=== PATIENT | female | born 2000 | race Two or more races ===

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

== ENCOUNTER 2023-12-08 02:30 | Emergency (ER) | payer MEDICAID ==
[~2023-12-08] VITALS: Ht 154.9 cm; Wt 59.1 kg
[2023-12-08 03:25] LABS: Basophils # (auto) 0.1 10 ^3/uL (0-0.2); Basophils % (auto) 0.6 % (0.0-2.0); Eosinophils # (auto) 0.1 10 ^3/uL (0-0.8); Eosinophils % (auto) 0.6 % (0.0-7.0); Hematocrit 42.8 % (36.0-46.0); Hemoglobin 14.7 g/dL (12.2-16.2); Lymphocytes # (auto) 3.1 10 ^3/uL (0.4-5.4); Lymphocytes % (auto) 22.4 % (10.0-50.0); Mean Corpuscular Hemoglobin 29.4 pg (28.0-32.0); Mean Corpuscular Hgb Conc. 34.3 g/dL (32.0-36.0); Mean Corpuscular Volume 85.6 fL (80.0-100.0); Monocytes # (auto) 0.8 10 ^3/uL (0-1.3); Monocytes % (auto) 5.7 % (0.0-12.0); Neutrophils # (auto) 9.9 10 ^3/uL (1.6-8.6); Neutrophils % (auto) 70.7 % (37.0-80.0); Platelet Count (auto) 249 10^3/uL (140-450); Red Blood Cells 4.99 10^6/uL (4.0-5.20)
[2023-12-08 03:31] VITALS: TEMP 99
[2023-12-08 03:35] VITALS: PULSE 95; RESP 18; O2SAT 97
[2023-12-08] MEDS: MORPHINE SULFATE 4 MG/ML SYR/VIAL IV ONE (04:54)
[2023-12-08] MEDS: ONDANSETRON HCL 4 MG/2 ML VIAL IV ONE (04:55)
[2023-12-08 04:57] LABS: Chloride 110 mmol/L (98-107); Potassium 3.8 mmol/L (3.5-5.1); Sodium 139 mmol/L (136-145)
[2023-12-08 04:58] LABS: Anion Gap 9 (5-15); Calcium 9.8 mg/dL (8.7-10.4); Carbon Dioxide 20 mmol/L (20-31)
[2023-12-08 05:03] LABS: BUN/Creatinine Ratio 10.8 (10.0-20.0); Blood Urea Nitrogen 9 mg/dL (9-23); Glucose 110 mg/dL (74-106)
[2023-12-08 06:00] VITALS: BP 115/71; PULSE 86; RESP 16; O2SAT 98
[2023-12-08] MEDS: KETOROLAC TROMETH 30 MG/ML 1ML VIAL IV ONE (06:55)
[2023-12-08] MEDS ORDERED: GABA300T4 PO (07:02)
[2023-12-08] MEDS ORDERED: METH-1181 PO (07:02)
[2023-12-08] MEDS ORDERED: IBUP-1455 PO (07:02)
== END 2023-12-08 07:22 | disposition home or self-care (01) ==
LOC: ER 02:30 → EDBD 02:30 → EDUNIT# 02:30 → ER 07:22
DX: S16.1XXA Strain of muscle, fascia and tendon at neck level, initial encounter (principal); R10.2 Pelvic and perineal pain; S39.012A Strain of muscle, fascia and tendon of lower back, initial encounter; R20.2 Paresthesia of skin; Z98.890 Other specified postprocedural states; V89.2XXA Person injured in unspecified motor-vehicle accident, traffic, initial encounter; Y93.89 Activity, other specified; Y92.89 Other specified places as the place of occurrence of the external cause; Y99.8 Other external cause status
CPT/HCPCS: 36415; 70450; 71045; 72125; 72128; 72131; 80048; 84484; 84702; 85025; 93005; 96374; 96375; 99285; J1885; J2270; J2405